=== PATIENT | male | born 2000 | race Two or more races ===

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

== ENCOUNTER 2022-02-21 22:10 | Emergency (ER) | payer OTHER ==
[~2022-02-21] VITALS: Ht 167.6 cm; Wt 87.3 kg
[2022-02-21 22:52] VITALS: BP 142/79
== END 2022-02-22 04:06 | disposition left against medical advice (07) ==
LOC: ER 22:10
DX: S49.92XA Unspecified injury of left shoulder and upper arm, initial encounter (principal); Z53.21 Procedure and treatment not carried out due to patient leaving prior to being seen by health care provider; V00.311A Fall from snowboard, initial encounter; Y93.23 Activity, snow (alpine) (downhill) skiing, snowboarding, sledding, tobogganing and snow tubing; Y92.89 Other specified places as the place of occurrence of the external cause; Y99.8 Other external cause status
CPT/HCPCS: 73020